=== PATIENT | male | born 1980 | race Caucasian/White ===

== ENCOUNTER 2019-08-21 20:58 | Emergency (ER) | payer BC ==
[~2019-08-21 20:58] MED LIST: Iopamidol-370 76% 500 ML 1 ML ONE
--- NOTE | 2019-08-21 21:58 | CT ---
CT ABDOMEN AND PELVIS WITH IV CONTRAST 08/21/2019 CLINICAL INFORMATION: Right upper quadrant abdominal pain. COMPARISON: None. Technique: Multiple contiguous axial CT images are obtained through the abdomen and pelvis with IV contrast. Cor onal reformatted images are provided. FINDINGS: Lower Chest: Minimal dependent bibasilar atelectasis. Vessels: Abdominal aorta is normal in caliber without evidence of an aortic dissection. Abdomen: Portal vein:Patent Gallbladder: Incompletely distended. Liver: within normal limits. Spleen: within normal limits. Pancreas: within normal limits. Adrenals: within normal limits. Kidneys: An approximately 4 mm nonobstructing calculus is seen in the inferior pole right kidney and a 4 mm nonobstructing calculus seen in the midportion left kidney. Mild right hydronephrosis is present. A calculus is present in the proximal right ureter measuring 6 mm with periureteral inflamma tory stranding present. No left ureteral calculus is present. Right ureter is mildly dilated both proximal and distal to the calculus was suggestion of minimal wall thickening involving the right ure ter. Bowel: Scattered colonic diverticula are seen with small amount of retained fecal material in the col on. Loops of small bowel are normal in caliber. Appendix: The appendix is visualized and normal in caliber. Peritoneum: No ascites or free air; no fluid collection. Mesentery and Retroperitoneum: No enlarged mesenteric or retroperitoneal lymph nodes. Abdominal Wall: within normal limits. Pelvis: Reproductive Organs: No pelvic masses. Pelvis within normal limits. Bladder: within normal limits. Bones: No suspicious lytic or sclerotic osseous lesions are identified. IMPRESSION: 1. Partially obstructing proximal right ureteral calculus measuring 6 mm. Mild right hydronephrosis a nd hydroureter is present. Ureter distal to the calculus is also mildly dilated compared to the left. Mild wall thickening involving the cuello of the right ureter. This may be inflammatory and seco ndary to the calculus. Infection on the right cannot be entirely excluded. No perinephric stranding is present.
[2019-08-21] MEDS ORDERED: Ketorolac Tromethamine 30 MG/ML VIAL ONE (22:29)
[2019-08-21] MEDS ORDERED: Tamsulosin HCl 0.4 MG CAP PO SCH (22:45)
[2019-08-21 23:04] LABS: Bacteria/HPF None Seen HPF (None Seen); Bilirubin Negative (Negative); Blood, Urine 1+ (Negative); Clarity Clear (Clear); Glucose, Urine (Dipstick) Normal (Negative); Leukocyte Negative Leu/uL (Negative); Nitrite Negative (Negative); Protein, Urine (Dipstick) Negative (Neg-Trace); Squamous Epithelial None Seen HPF (0-3); Urobilinogen Normal mg/dL (Less than 2); WBC/HPF 0-3 HPF (0-3)
== END 2019-08-21 23:20 | disposition home or self-care (01) ==
LOC: ERS 20:58
DX: N13.2 Hydronephrosis with renal and ureteral calculous obstruction (principal)
CPT/HCPCS: 74177; 81003; 81015; 87086; 96361; 96374; J1885; Q9967

== ENCOUNTER 2024-06-11 13:28 | Outpatient (CLI) | payer OTHER | END 2024-06-11 13:29 | disposition home or self-care (01) | LOC: BICCT 13:28 | PROVIDERS: ATTEND Internal Medicine Cardiovascular Disease | DX: Z13.6 Encounter for screening for cardiovascular disorders (principal); E78.2 Mixed hyperlipidemia | CPT/HCPCS: 75571 ==